=== PATIENT | male | born 1965 | race Hispanic/Latino ===

== ENCOUNTER 2016-06-11 21:02 | Emergency (ER) | payer MEDICARE ==
[2016-06-11 21:45] VITALS: BP 113/81
[2016-06-11 22:09] LABS: Basophils % (Auto) 0.6 % (0.0-1.8); Eosinophils % (Auto) 3.8 % (0.0-4.3); Hematocrit 40.8 % (35.5-45.6); Hemoglobin 13.9 gm/dl (11.8-15.2); Mean Corpuscular HGB Conc 34 % (32-34); Mean Corpuscular Hemoglobin 33 pg (28-32); Mean Corpuscular Volume 96 fl (84-94); Platelet Count 148 K/mm3 (140-440); Red Blood Count 4.26 M/mm3 (3.65-5.03); Red Cell Distribution Width 13.1 % (13.2-15.2)
[2016-06-11 22:35] LABS: Alanine Aminotransferase 11 units/L (7-56); Albumin 4.3 g/dL (3.9-5); Alkaline Phosphatase 51 units/L (35-129); Anion Gap 17 mmol/L; BUN/Creatinine Ratio 5.45; Bilirubin,Total < 0.2 mg/dL (0.1-1.2); Blood Urea Nitrogen 6 mg/dL (9-20); Calcium 9.3 mg/dL (8.4-10.2); Carbon Dioxide 27 mmol/L (22-30); Chloride 98.9 mmol/L (98-107); Glucose 120 mg/dL (75-100); Potassium 3.7 mmol/L (3.6-5.0); Sodium 139 mmol/L (137-145); Total Protein 6.5 g/dL (6.3-8.2)
[2016-06-12 01:06] LABS: Bilirubin,Urine NEG (Negative); Blood,Urine NEG (Negative); Ketones,Urine NEG (Negative); Leukocyte Esterase,Urine NEG (Negative); Mucus,Urine FEW /HPF; Nitrite,Urine NEG (Negative); Protein,Urine <15 mg/dL mg/dL (Negative); Urobilinogen,Urine < 2.0 mg/dL (<2.0)
--- NOTE | 2016-06-13 20:22 | ED Elopement Review ---
ED Pt Elopement review - Results review Lab results: Laboratory Tests 06/11/16 06/11/16 06/11/16 21:50 21:50 Unknown WBC 6.0 RBC 4.26 Hgb 13.9 Hct 40.8 MCV 96 H MCH 33 H MCHC 34 RDW 13.1 L Plt Count 148 Lymph % (Auto) 49.9 H Boyle % (Auto) 7.3 Eos % (Auto) 3.8 Baso % (Auto) 0.6 Lymph # 3.0 Boyle # 0.4 Eos # 0.2 Baso # 0.0 Seg Neutrophils % 38.4 L Seg Neutrophils # 2.3 Sodium 139 Potassium 3.7 Chloride 98.9 Carbon Dioxide 27 Anion Gap 17 BUN 6 L Creatinine 1.1 Estimated GFR > 60 BUN/Creatinine Ratio 5.45 Glucose 120 H Calcium 9.3 Total Bilirubin < 0.2 AST 12 ALT 11 Alkaline Phosphatase 51 Total Protein 6.5 Albumin 4.3 Albumin/Globulin Ratio 2.0 Urine Color Yellow Urine Turbidity Clear Urine pH 6.0 Ur Specific [place] 1.015 Urine Protein <15 mg/dl Urine Glucose (UA) Neg Urine Ketones Neg Urine Blood Neg Urine Nitrite Neg Urine Bilirubin Neg Urine Urobilinogen < 2.0 Ur Leukocyte Esterase Neg Urine WBC (Auto) 1.0 Urine RBC (Auto) 1.0 U Epithel Cells (Auto) < 1.0 Urine Mucus Few - Call Back decision Pt Call Back Decision: No action required
== END 2016-06-12 02:55 | disposition left against medical advice (07) ==
LOC: ED 21:02
DX: R10.30 Lower abdominal pain, unspecified (principal); R11.2 Nausea with vomiting, unspecified; Z53.21 Procedure and treatment not carried out due to patient leaving prior to being seen by health care provider
CPT/HCPCS: 36415; 80053; 81001; 85025

== ENCOUNTER 2017-05-25 23:57 | Emergency (ER) | payer MEDICARE ==
[2017-05-26 01:22] VITALS: BP 118/83
[2017-05-26] MEDS ORDERED: ZOFRAN IM ONE (03:44)
[2017-05-26] MEDS ORDERED: ZOFRAN ONE (03:46)
[2017-05-26 04:25] LABS: Basophils % (Auto) 0.2 % (0.0-1.8); Eosinophils # (Auto) 0.1 K/mm3 (0.0-0.4); Eosinophils % (Auto) 0.7 % (0.0-4.3); Hemoglobin 17.4 gm/dl (11.8-15.2); Lymphocytes # (Auto) 0.7 K/mm3 (1.2-5.4); Lymphocytes % (Auto) 4.4 % (13.4-35.0); Mean Corpuscular HGB Conc 34 % (32-34); Mean Corpuscular Hemoglobin 33 pg (28-32); Mean Corpuscular Volume 97 fl (84-94); Monocytes # (Auto) 0.8 K/mm3 (0.0-0.8); Platelet Count 202 K/mm3 (140-440); Red Blood Count 5.28 M/mm3 (3.65-5.03); Red Cell Distribution Width 13.9 % (13.2-15.2)
[2017-05-26 06:24] LABS: Calcium 10.2 mg/dL (8.4-10.2)
== END 2017-05-26 15:00 | disposition left against medical advice (07) ==
LOC: ED 23:57
DX: R10.9 Unspecified abdominal pain (principal); Z53.21 Procedure and treatment not carried out due to patient leaving prior to being seen by health care provider
CPT/HCPCS: 36415; 80053; 85025; 96372; J2405

== ENCOUNTER 2017-09-22 17:47 | Emergency (ER) | payer MEDICARE ==
[2017-09-22 19:55] VITALS: BP 116/81
== END 2017-09-22 23:10 | disposition left against medical advice (07) ==
LOC: ED 17:47
DX: Z53.21 Procedure and treatment not carried out due to patient leaving prior to being seen by health care provider (principal)

== ENCOUNTER 2019-07-09 23:12 | Emergency (ER) | payer MEDICARE ==
[2019-07-10 01:25] LABS: Basophils % (Auto) 0.5 % (0.0-1.8); Eosinophils # (Auto) 0.1 K/mm3 (0.0-0.4); Eosinophils % (Auto) 1.3 % (0.0-4.3); Hematocrit 44.7 % (35.5-45.6); Hemoglobin 15.2 gm/dl (11.8-15.2); Lymphocytes # (Auto) 1.2 K/mm3 (1.2-5.4); Lymphocytes % (Auto) 18.1 % (13.4-35.0); Mean Corpuscular HGB Conc 34 % (32-34); Mean Corpuscular Volume 90 fl (84-94); Monocytes # (Auto) 0.7 K/mm3 (0.0-0.8); Monocytes % (Auto) 9.6 % (0.0-7.3); Platelet Count 182 K/mm3 (140-440); Red Blood Count 4.95 M/mm3 (3.65-5.03); Red Cell Distribution Width 15.8 % (13.2-15.2)
[2019-07-10 01:48] LABS: Alanine Aminotransferase 28 units/L (7-56); Albumin 4.8 g/dL (3.9-5); BUN/Creatinine Ratio 9; Blood Urea Nitrogen 10 mg/dL (9-20); Calcium 9.4 mg/dL (8.4-10.2); Hemolysis Index 12
[2019-07-10] MEDS ORDERED: SODIUM CHLORIDE 0.9% 1000 ML 1,000 ML IV ONE (07:28)
[2019-07-10] MEDS ORDERED: MORPHINE 4 MG/1 ML INJ IV ONE (07:28)
[2019-07-10] MEDS ORDERED: ONDANSETRON 4 MG/2 ML INJ IV ONE (07:28)
[2019-07-10 07:32] LABS: Bilirubin,Urine NEG (Negative); Blood,Urine NEG (Negative); Color,Urine Yellow (Yellow); Protein,Urine <15 mg/dL mg/dL (Negative); Urobilinogen,Urine < 2.0 mg/dL (<2.0)
--- NOTE | 2019-07-10 07:40 | Emergency Department Report ---
ED Abdominal Pain HPI - General Chief Complaint: Abdominal Pain Stated Complaint: N/V/D Time Seen by Provider: 07/10/19 07:27 Source: patient Mode of arrival: Ambulatory Limitations: No Limitations - History of Present Illness Initial Comments: This is a 53-year-old male nontoxic, well nourished in appearance, no acute signs of distress presents to the ED with c/o of nausea and vomiting and abdominal pain 12 days. Patient describes vomiting as food content and yellow gastric acid. Patient describes abdominal pain as cramping and aching with leve l of 3/10 diffuse. Patient denies chest pain, short of breath, fever, hemoptysis, blood in stool, chills, headache, stiff neck, numbness or tingling. Patient denies any diarrhea or constipation. Denies any blood in stool. Patient denies any recent travels. Patient stated allergies to aspirin and meperdine. MD Complaint: abdominal pain -: days(s) Location: diffuse Radiation: none Migration to: no migration Severity: mild Severity scale (0 -10): 8 Quality: cramping, aching Consistency: constant Improves With: nothing Worsens With: nothing Associated Symptoms: nausea, vomiting. denies: diarrhea, fever, chills, constipation, dysuria, hematemesis, hematochezia, melena, hematuria, anorexia, syncope - Related Data Home Medications Medication Instructions Recorded Confirmed Last Taken Trazodone HCl [traZODone] 200 mg PO HS 07/11/14 01/20/19 07/11/[address] 500 mg PO BID 01/20/19 01/20/19 Unknown Dexilant 60 mg PO DAILY 01/20/19 01/20/19 Unknown Invega 9 mg PO HS 01/20/19 01/20/19 Unknown Lexapro 20 mg PO DAILY 01/20/19 01/20/19 Unknown hydrOXYzine 50 mg PO TID 01/20/19 01/20/19 Unknown Previous Rx's Medication Instructions Recorded Last Taken Type Benzonatate [Tessalon Perles] 200 mg PO Q8HR #10 capsule 01/22/[address] [Depakote Dr] 500 mg PO BID #60 tablet 01/22/19 Unknown Rx Escitalopram [Lexapro] 20 mg PO DAILY #30 tablet 01/22/19 Unknown Rx Nicotine [Habitrol] 21 mg TD QDAY #10 patch 01/22/19 Unknown Rx Paliperidone [Invega] 9 mg PO QHS tablet 01/22/19 Unknown Rx QUEtiapine [SEROquel] 400 mg PO BID #60 tablet 01/22/19 Unknown Rx busPIRone [Buspar] 20 mg PO TID #90 tablet 01/22/19 Unknown Rx cefUROXime [Ceftin] 500 mg PO Q12H #20 tablet 01/22/19 Unknown Rx methylPREDNISolone [Medrol 4MG 4 mg PO DAILY #1 tab.ds.pk 01/22/19 Unknown Rx DOSEPAK (21 tabs)] oxyCODONE /ACETAMINOPHEN [Percocet 1 tab PO Q6H PRN #12 tablet 01/22/19 Unknown Rx 5/325 mg] traZODone [Desyrel] 200 mg PO QHS #30 tablet 01/22/19 Unknown Rx Acetaminophen/Codeine [Tylenol 1 tab PO Q6H PRN #12 tab 07/10/19 Unknown Rx /Codeine # 3 tab] Ciprofloxacin HCl [Ciprofloxacin 500 mg PO Q12HR #14 tab 07/10/19 Unknown Rx TAB] Ondansetron [Zofran Odt] 4 mg PO Q8HR PRN #20 tab.rapdis 07/10/19 Unknown Rx metroNIDAZOLE [Flagyl] 500 mg PO Q12HR #14 tab 07/10/19 Unknown Rx Allergies Allergy/AdvReac Type Severity Reaction Status Date / Time aspirin Allergy Rash Verified 03/28/18 07:51 bee pollen Allergy Swelling Verified 03/28/18 07:51 meperidine HCl [From Demerol] Allergy Rash Verified 03/28/18 07:51 ED Review of Systems ROS: Stated complaint: N/V/D Other details as noted in HPI Constitutional: denies: chills, fever Eyes: denies: eye pain, eye discharge, vision change ENT: denies: ear pain, throat pain Respiratory: denies: cough, shortness of breath, wheezing Cardiovascular: denies: chest pain, palpitations Endocrine: no symptoms reported Gastrointestinal: abdominal pain, nausea, vomiting. denies: diarrhea, constipation, hematemesis, melena, hematochezia Genitourinary: denies: urgency, dysuria Musculoskeletal: denies: back pain, joint swelling, arthralgia Skin: denies: rash, lesions Neurological: denies: headache, weakness, paresthesias Psychiatric: denies: anxiety, depression Hematological/Lymphatic: denies: easy bleeding, easy bruising ED Past Medical Hx - Past Medical History Previous Medical History?: Yes Hx Congestive Heart Failure: No Hx Diabetes: No Hx Arthritis: Yes Hx Psychiatric Treatment: Yes (schizophrenia) Hx Asthma: No Hx COPD: No Additional medical history: STOMACH INFECTION inflammed prostate - Surgical History Past Surgical History?: Yes Hx Cholecystectomy: Yes - Social History Smoking Status: Current Every Day Smoker - Medications Home Medications: Home Medications Medication Instructions Recorded Confirmed Last Taken Type Trazodone HCl [traZODone] 200 mg PO HS 07/11/14 01/20/19 07/11/[address] 500 mg PO BID 01/20/19 01/20/19 Unknown History Dexilant 60 mg PO DAILY 01/20/19 01/20/19 Unknown History Invega 9 mg PO HS 01/20/19 01/20/19 Unknown History Lexapro 20 mg PO DAILY 01/20/19 01/20/19 Unknown History hydrOXYzine 50 mg PO TID 01/20/19 01/20/19 Unknown History Benzonatate [Tessalon Perles] 200 mg PO Q8HR #10 capsule 01/22/[address] [Chinyere Astudillo] 500 mg PO BID #60 tablet 01/22/19 Unknown Rx Escitalopram [Lexapro] 20 mg PO DAILY #30 tablet 01/22/19 Unknown Rx Nicotine [Habitrol] 21 mg TD QDAY #10 patch 01/22/19 Unknown Rx Paliperidone [Invega] 9 mg PO QHS tablet 01/22/19 Unknown Rx QUEtiapine [SEROquel] 400 mg PO BID #60 tablet 01/22/19 Unknown Rx busPIRone [Buspar] 20 mg PO TID #90 tablet 01/22/19 Unknown Rx cefUROXime [Ceftin] 500 mg PO Q12H #20 tablet 01/22/19 Unknown Rx methylPREDNISolone [Medrol 4MG 4 mg PO DAILY #1 tab.ds.pk 01/22/19 Unknown Rx DOSEPAK (21 tabs)] oxyCODONE /ACETAMINOPHEN [Percocet 1 tab PO Q6H PRN #12 tablet 01/22/19 Unknown Rx 5/325 mg] traZODone [Desyrel] 200 mg PO QHS #30 tablet 01/22/19 Unknown Rx Acetaminophen/Codeine [Tylenol 1 tab PO Q6H PRN #12 tab 07/10/19 Unknown Rx /Codeine # 3 tab] Ciprofloxacin HCl [Ciprofloxacin 500 mg PO Q12HR #14 tab 07/10/19 Unknown Rx TAB] Ondansetron [Zofran Odt] 4 mg PO Q8HR PRN #20 tab.rapdis 07/10/19 Unknown Rx metroNIDAZOLE [Flagyl] 500 mg PO Q12HR #14 tab 07/10/19 Unknown Rx ED Physical Exam - General Limitations: No Limitations General appearance: alert, in no apparent distress - Head Head exam: Present: atraumatic, normocephalic - Eye Eye exam: Present: normal appearance - ENT ENT exam: Present: normal exam, normal orophraynx - Neck Neck exam: Present: normal inspection, full ROM. Absent: tenderness, meningismus, lymphadenopathy - Respiratory Respiratory exam: Present: normal lung sounds bilaterally. Absent: respiratory distress, wheezes, rales, rhonchi, stridor, chest wall tenderness, accessory muscle use, decreased breath sounds, prolonged expiratory - Cardiovascular Cardiovascular Exam: Present: regular rate, normal rhythm, normal heart sounds. Absent: irregular rhythm, systolic murmur, diastolic murmur, rubs, gallop - GI/Abdominal GI/Abdominal exam: Present: soft, tenderness (diffuse), normal bowel sounds. Absent: distended, guarding, rebound, diminished bowel sounds - Extremities Exam Extremities exam: Present: normal inspection, full ROM - Back Exam Back exam: Present: normal inspection, full ROM. Absent: tenderness, CVA tenderness (R), CVA tenderness (L), muscle spasm, paraspinal tenderness, vertebral tenderness, rash noted - Neurological Exam Neurological exam: Present: alert, oriented X3, normal gait - Psychiatric Psychiatric exam: Present: normal affect, normal mood - Skin Skin exam: Present: warm, dry, intact, normal color. Absent: rash ED Course Vital Signs 07/09/19 07/10/19 07/10/19 23:26 07:39 08:00 Temperature 98.7 F Pulse Rate 109 H 85 Respiratory 18 18 Rate Blood Pressure 102/71 127/76 O2 Sat by Pulse 95 95 Oximetry 07/10/19 08:54 Temperature Pulse Rate Respiratory 18 Rate Blood Pressure O2 Sat by Pulse 97 Oximetry - Reevaluation(s) Reevaluation #1: 07/10/19 07:39 Patient is speaking in full sentences with no signs of distress noted. - Consultations Consultation #1: 07/10/19 09:41 Patient has been consulted with Dr. Lawler about patient history, physical exam, and labs/CT scan and agrees to ED plan of care and discharge plan of care. ED Medical Decision Making - Lab Data Result diagrams: 07/10/19 01:14 07/10/19 01:14 - Medical Decision Making This is a 53-year-old male that presents with abdominal pain. Patient is stable and was examined by me. There is no abdominal tenderness. Negative signs of symptoms of appendicitis. Labs obtained. UA obtained. CT of abdomen obtained and dictated by the radiologist. Patient is notified of the report with no questions noted by the patient. Vital signs are stable prior to discharge. Patient received medical treatment in the ED which patient stated symptoms has resovled and subsided. Was instructed note to operate any machinery due to possible drowsiness and stated someone will drive the patient home. A by mouth challenge has been obtained and patient tolerated well with no nausea vomiting. Patient was notified of strict precatuions of appendictis symptoms and to return to the ED if symptoms occurs as soon as possible. Patient was also instructed to Follow-up with a primary care doctor in 3-5 days or if symptoms worsen and continue return to emergency room as soon as possible. At time of discharge, the patient does not seem toxic or ill in appearance. No acute signs of distress noted. Patient agrees to discharge treatment plan of care. No further questions noted by the patient. Critical care attestation.: If time is entered above; I have spent that time in minutes in the direct care of this critically ill patient, excluding procedure time. ED Disposition Clinical Impression: Abdominal pain Qualifiers: Abdominal location: generalized Qualified Code(s): R10.84 - Generalized abdominal pain Nausea & vomiting Qualifiers: Vomiting type: unspecified Vomiting Intractability: non-intractable Qualified Code(s): R11.2 - Nausea with vomiting, unspecified Disposition: DC-01 TO HOME OR SELFCARE Is pt being admited?: No Does the pt Need Aspirin: No Condition: Stable Instructions: Acute Abdominal Pain (ED), Acute Nausea and Vomiting (ED) Additional Instructions: Follow-up with a primary care and certified nursing assistant doctor in 3-5 days or if symptoms worsen and continue return to emergency room as soon as possible. Prescriptions: Ciprofloxacin HCl [Ciprofloxacin TAB] 500 mg PO Q12HR #14 tab metroNIDAZOLE [Flagyl] 500 mg PO Q12HR #14 tab Acetaminophen/Codeine [Tylenol /Codeine # 3 tab] 1 tab PO Q6H PRN #12 tab PRN Reason: Pain , Severe (7-10) Ondansetron [Zofran Odt] 4 mg PO Q8HR PRN #20 tab.rapdis PRN Reason: Nausea Referrals: PRIMARY CAREMD [Primary Care Provider] - 3-5 Days [facility] [Outside] - 3-5 Days JORDAN THOMPSON MD [Staff Physician] - 3-5 Days Forms: Work/School Release Form(ED)
[2019-07-10 08:06] VITALS: BP 127/76
--- NOTE | 2019-07-10 08:50 | Cat Scan Report ---
CT OF THE ABDOMEN AND PELVIS WITH INTRAVENOUS CONTRAST INDICATION / CLINICAL INFORMATION: Abdominal pain with nausea and vomiting for 3 days. TECHNIQUE: The patient received 100 cc Omnipaque [address] scans at this location are performed using CT dose reduction for ALARA by means of automated exposure control. COMPARISON: 03/14/16. FINDINGS: ABDOMEN: The gallbladder is surgically absent. Slight bile duct prominence without a cause is new. No focal liver lesion is seen. The pancreas, spleen, adrenal glands and kidneys are normal in appearanc e. No adenopathy is seen. There is mild generalized increased fluid throughout the colon without bowel wall thickening, obstruc tion or free air. There is mild bibasilar subsegmental atelectasis. PELVIS: The distal ureters, urinary bladder and prostate gland are normal. There is no evidence of di verticulitis. A normal appendix is present. No abnormal mass or fluid collection is seen. I do not id entify a hernia. There is mild lower lumbar spondylosis. IMPRESSION: 1. Generalized increased fluid throughout the colon is a nonspecific finding which raises the possibi lity of a low-grade colitis. Other causes of diarrhea could also have this appearance. 2. Mild nonspecific bile duct prominence in a postcholecystectomy patient. Signer Name: Paul Pastor MD Signed: 07/10/2019 8:45 AM Workstation Name: [id number]
== END 2019-07-10 09:57 | disposition home or self-care (01) ==
LOC: ED 23:12
DX: R11.2 Nausea with vomiting, unspecified (principal); R10.9 Unspecified abdominal pain; F20.9 Schizophrenia, unspecified; M19.90 Unspecified osteoarthritis, unspecified site; F17.200 Nicotine dependence, unspecified, uncomplicated; Z88.8 Allergy status to other drugs, medicaments and biological substances; Z79.899 Other long term (current) drug therapy; Z91.030 Bee allergy status; Z90.49 Acquired absence of other specified parts of digestive tract
CPT/HCPCS: 36415; 74177; 80053; 81001; 83690; 85025; 96361; 96374; 96375; 99284; J2270; J2405; J7030; Q9967

== ENCOUNTER 2022-01-17 10:19 | Emergency (ER) | payer MEDICARE ==
--- NOTE | 2022-01-17 15:38 | Emergency Department Report ---
ED General Adult HPI - General Chief complaint: Pain General Stated complaint: PSYCH/ OUT OF MEDS/WEAK Source: patient Mode of arrival: Ambulatory Limitations: No Limitations - History of Present Illness Initial comments: 56-year-old male presents to the ED questing a med refill for his psychiatric medication. Patient states that he was discharged from [facility]. Patient states that when he was discharged he did not have a refill on his medication. States that he is need refill of his medication. Patient states that he only have 2 days of medication with. Patient states he is currently going to the assessment process to be placed in another psychiatric facility. Patient is alert and oriented x3. No acute distress noted. No ill appearance noted. Patient denies any homicidal suicidal ideation. - Related Data Home Medications Medication Instructions Recorded Confirmed Last Taken Trazodone HCl [traZODone] 200 mg PO HS 07/11/14 01/20/19 07/11/[address] 500 mg PO BID 01/20/19 01/20/19 Unknown Dexilant 60 mg PO DAILY 01/20/19 01/20/19 Unknown Invega 9 mg PO HS 01/20/19 01/20/19 Unknown Lexapro 20 mg PO DAILY 01/20/19 01/20/19 Unknown hydrOXYzine 50 mg PO TID 01/20/19 01/20/19 Unknown Previous Rx's Medication Instructions Recorded Last Taken Type Benzonatate [Tessalon Perles] 200 mg PO Q8HR #10 capsule 01/22/[address] [Depakote Dr] 500 mg PO BID #60 tablet 01/22/19 Unknown Rx Escitalopram [Lexapro] 20 mg PO DAILY #30 tablet 01/22/19 Unknown Rx Nicotine [Habitrol] 21 mg TD QDAY #10 patch 01/22/19 Unknown Rx Paliperidone [Invega] 9 mg PO QHS tablet 01/22/19 Unknown Rx QUEtiapine [SEROquel] 400 mg PO BID #60 tablet 01/22/19 Unknown Rx busPIRone [Buspar] 20 mg PO TID #90 tablet 01/22/19 Unknown Rx cefUROXime [Ceftin] 500 mg PO Q12H #20 tablet 01/22/19 Unknown Rx methylPREDNISolone [Medrol 4MG 4 mg PO DAILY #1 tab.ds.pk 01/22/19 Unknown Rx DOSEPAK (21 tabs)] oxyCODONE /ACETAMINOPHEN [Percocet 1 tab PO Q6H PRN #12 tablet 01/22/19 Unknown Rx 5/325 mg] traZODone [Desyrel] 200 mg PO QHS #30 tablet 01/22/19 Unknown Rx Acetaminophen/Codeine [Tylenol 1 tab PO Q6H PRN #12 tab 07/10/19 Unknown Rx /Codeine # 3 tab] Ciprofloxacin HCl [Ciprofloxacin 500 mg PO Q12HR #14 tab 07/10/19 Unknown Rx TAB] Ondansetron [Zofran Odt] 4 mg PO Q8HR PRN #20 tab.rapdis 07/10/19 Unknown Rx metroNIDAZOLE [Flagyl] 500 mg PO Q12HR #14 tab 07/10/19 Unknown Rx Buspirone HCl [busPIRone] 15 mg PO BID 30 Days #60 tab 01/17/22 Unknown Rx Divalproex ER [DepaKOTE ER] 500 mg PO BID 30 Days #60 tablet 01/17/22 Unknown Rx Divalproex Sodium [Depakote] 500 mg PO BID 30 Days #60 tab 01/17/22 Unknown Rx Doxepin [SINEquan] 25 mg PO QHS 30 Days #30 capsule 01/17/22 Unknown Rx Escitalopram Oxalate [Lexapro] 20 mg PO DAILY 30 Days #30 tab 01/17/22 Unknown Rx QUEtiapine [SEROquel] 200 mg PO BID 30 Days #60 tablet 01/17/22 Unknown Rx Trazodone HCl 100 mg PO DAILY 30 Days #60 tab 01/17/22 Unknown Rx metFORMIN [Glucophage] 500 mg PO BID 30 Days #60 tab 01/17/22 Unknown Rx Allergies Allergy/AdvReac Type Severity Reaction Status Date / Time aspirin Allergy Rash Verified 03/28/18 07:51 bee pollen Allergy Swelling Verified 03/28/18 07:51 meperidine HCl [From Demerol] Allergy Rash Verified 03/28/18 07:51 ED Review of Systems ROS: Stated complaint: PSYCH/ OUT OF MEDS/WEAK Other details as noted in HPI Constitutional: denies: chills, fever Eyes: denies: eye pain, eye discharge, vision change ENT: denies: ear pain, throat pain Respiratory: denies: cough, shortness of breath, wheezing Cardiovascular: denies: chest pain, palpitations Endocrine: no symptoms reported Gastrointestinal: denies: abdominal pain, nausea, diarrhea Genitourinary: denies: urgency, dysuria Musculoskeletal: denies: back pain, joint swelling, arthralgia Skin: denies: rash, lesions Neurological: denies: headache, weakness, paresthesias Psychiatric: denies: anxiety, depression Hematological/Lymphatic: denies: easy bleeding, easy bruising ED Past Medical Hx - Past Medical History Hx Congestive Heart Failure: No Hx Diabetes: No Hx Arthritis: Yes Hx Psychiatric Treatment: Yes (schizophrenia) Hx Asthma: No Hx COPD: No Additional medical history: STOMACH INFECTION inflammed prostate - Surgical History Hx Cholecystectomy: Yes - Social History Smoking Status: Current Every Day Smoker - Medications Home Medications: Home Medications Medication Instructions Recorded Confirmed Last Taken Type Trazodone HCl [traZODone] 200 mg PO HS 07/11/14 01/20/19 07/11/[address] 500 mg PO BID 01/20/19 01/20/19 Unknown History Dexilant 60 mg PO DAILY 01/20/19 01/20/19 Unknown History Invega 9 mg PO HS 01/20/19 01/20/19 Unknown History Lexapro 20 mg PO DAILY 01/20/19 01/20/19 Unknown History hydrOXYzine 50 mg PO TID 01/20/19 01/20/19 Unknown History Benzonatate [Tessalon Perles] 200 mg PO Q8HR #10 capsule 01/22/[address] [Depakote Dr] 500 mg PO BID #60 tablet 01/22/19 Unknown Rx Escitalopram [Lexapro] 20 mg PO DAILY #30 tablet 01/22/19 Unknown Rx Nicotine [Habitrol] 21 mg TD QDAY #10 patch 01/22/19 Unknown Rx Paliperidone [Invega] 9 mg PO QHS tablet 01/22/19 Unknown Rx QUEtiapine [SEROquel] 400 mg PO BID #60 tablet 01/22/19 Unknown Rx busPIRone [Buspar] 20 mg PO TID #90 tablet 01/22/19 Unknown Rx cefUROXime [Ceftin] 500 mg PO Q12H #20 tablet 01/22/19 Unknown Rx methylPREDNISolone [Medrol 4MG 4 mg PO DAILY #1 tab.ds.pk 01/22/19 Unknown Rx DOSEPAK (21 tabs)] oxyCODONE /ACETAMINOPHEN [Percocet 1 tab PO Q6H PRN #12 tablet 01/22/19 Unknown Rx 5/325 mg] traZODone [Desyrel] 200 mg PO QHS #30 tablet 01/22/19 Unknown Rx Acetaminophen/Codeine [Tylenol 1 tab PO Q6H PRN #12 tab 07/10/19 Unknown Rx /Codeine # 3 tab] Ciprofloxacin HCl [Ciprofloxacin 500 mg PO Q12HR #14 tab 07/10/19 Unknown Rx TAB] Ondansetron [Zofran Odt] 4 mg PO Q8HR PRN #20 tab.rapdis 07/10/19 Unknown Rx metroNIDAZOLE [Flagyl] 500 mg PO Q12HR #14 tab 07/10/19 Unknown Rx Buspirone HCl [busPIRone] 15 mg PO BID 30 Days #60 tab 01/17/22 Unknown Rx Divalproex ER [DepaKOTE ER] 500 mg PO BID 30 Days #60 tablet 01/17/22 Unknown Rx Divalproex Sodium [Depakote] 500 mg PO BID 30 Days #60 tab 01/17/22 Unknown Rx Doxepin [SINEquan] 25 mg PO QHS 30 Days #30 capsule 01/17/22 Unknown Rx Escitalopram Oxalate [Lexapro] 20 mg PO DAILY 30 Days #30 tab 01/17/22 Unknown Rx QUEtiapine [SEROquel] 200 mg PO BID 30 Days #60 tablet 01/17/22 Unknown Rx Trazodone HCl 100 mg PO DAILY 30 Days #60 tab 01/17/22 Unknown Rx metFORMIN [Glucophage] 500 mg PO BID 30 Days #60 tab 01/17/22 Unknown Rx ED Physical Exam - General Limitations: No Limitations General appearance: alert, in no apparent distress - Head Head exam: Present: atraumatic, normocephalic - Eye Eye exam: Present: normal appearance - ENT ENT exam: Present: mucous membranes moist - Neck Neck exam: Present: normal inspection - Respiratory Respiratory exam: Present: normal lung sounds bilaterally. Absent: respiratory distress - Cardiovascular Cardiovascular Exam: Present: regular rate, normal rhythm. Absent: systolic murmur, diastolic murmur, rubs, gallop - GI/Abdominal GI/Abdominal exam: Present: soft, normal bowel sounds - Rectal Rectal exam: Present: deferred - Extremities Exam Extremities exam: Present: normal inspection - Back Exam Back exam: Present: normal inspection - Neurological Exam Neurological exam: Present: alert, oriented X3 - Psychiatric Psychiatric exam: Present: normal affect, normal mood - Skin Skin exam: Present: warm, dry, intact, normal color. Absent: rash ED Course Vital Signs 01/17/22 01/17/22 11:13 16:01 Temperature 98.5 F 98.6 F Pulse Rate 96 H 78 Respiratory 18 18 Rate Blood Pressure 148/82 164/78 [Left] O2 Sat by Pulse 99 98 Oximetry ED Medical Decision Making - Medical Decision Making 56-year-old male presents to the ED questing a med refill for his psychiatric medication. Patient states that he was discharged from [facility]. Patient states that when he was discharged he did not have a refill on his medication. States that he is need refill of his medication. Patient states that he only have 2 days of medication with. Patient states he is currently going to the assessment process to be placed in another psychiatric facility. Patient is alert and oriented x3. No acute distress noted. No ill appearance noted. Patient denies any homicidal suicidal ideation. Rechecked the patient is resting quietly , comfortable and feeling better. I discussed the results of diagnostic study, my clinical impression and the plan for further treatment with the patient. Patient agrees with plan and discharge at this present time. All question addressed. I have given the patient instruction regarding a diagnosis ,expectation ,follow- up and return precaution. I explained to the patient that emergent condition may arise and to return to the ED for new worsen and any new persisting condition. I have explained the importance of following up with the primary care physician or referral physician listed below has instructed. The patient verbalized understanding of discharge instruction. Critical care attestation.: If time is entered above; I have spent that time in minutes in the direct care of this critically ill patient, excluding procedure time. ED Disposition Clinical Impression: Medication refill Disposition: HOME / SELF CARE / HOMELESS Is pt being admited?: No Does the pt Need Aspirin: No Condition: Stable Instructions: Medicine Refill at the Emergency Department Additional Instructions: Take medication as prescribed return to the ED for any worsening symptom Prescriptions: Doxepin [SINEquan] 25 mg PO QHS 30 Days #30 capsule Buspirone HCl [busPIRone] 15 mg PO BID 30 Days #60 tab Divalproex Sodium [Depakote] 500 mg PO BID 30 Days #60 tab Divalproex ER [DepaKOTE ER] 500 mg PO BID 30 Days #60 tablet metFORMIN [Glucophage] 500 mg PO BID 30 Days #60 tab Escitalopram Oxalate [Lexapro] 20 mg PO DAILY 30 Days #30 tab QUEtiapine [SEROquel] 200 mg PO BID 30 Days #60 tablet Trazodone HCl 100 mg PO DAILY 30 Days #60 tab Referrals: [facility] [Provider Group] - 3-5 Days Time of Disposition: 15:51
[2022-01-17 16:02] VITALS: BP 164/78
== END 2022-01-17 16:01 | disposition home or self-care (01) ==
LOC: ED 10:19
DX: F20.9 Schizophrenia, unspecified (principal); Z76.0 Encounter for issue of repeat prescription; M19.90 Unspecified osteoarthritis, unspecified site; Z90.49 Acquired absence of other specified parts of digestive tract; Z79.899 Other long term (current) drug therapy; Z91.09 Other allergy status, other than to drugs and biological substances
CPT/HCPCS: 99282